=== PATIENT | male | born 1980 | race African-American/Black ===

== ENCOUNTER 2017-03-27 21:07 | Emergency (ER) | payer SELFPAY ==
[2017-03-27] MEDS ORDERED: Ibuprofen 800 MG TAB ONE (22:01)
[2017-03-27] MEDS ORDERED: HYDROcodone/Acetaminophen 5/325 mg Tablet ONE (22:01)
[2017-03-27] MEDS ORDERED: Acetaminophen 325 MG TAB ONE (22:01)
[2017-03-27] MEDS ORDERED: Sulfameth/Trimethoprim DS 800-160mg TAB ONE (22:01)
[2017-03-27] MEDS ORDERED: Adacel (T-DAP) 0.5 ML VIAL ONE (22:11)
== END 2017-03-27 22:06 | disposition home or self-care (01) ==
LOC: NAV ERS 21:07
DX: L02.412 Cutaneous abscess of left axilla (principal); J45.909 Unspecified asthma, uncomplicated; F17.210 Nicotine dependence, cigarettes, uncomplicated
CPT/HCPCS: 10060; 90471; 90715